=== PATIENT | male | born 1965 | race Caucasian/White ===

== ENCOUNTER 2021-08-10 08:08 | Emergency (ER) | payer MEDICAID, SELFPAY ==
--- NOTE | ~2021-08-10 | XR_ITS ---
EXAMINATION: XR KNEE, LEFT CLINICAL INFORMATION: Left knee swelling. COMPARISON: None TECHNIQUE: Four views of the left knee. FINDINGS: The patient is status post proximal tibial ORIF with medial and lateral fixation plates and multiple securing screws in place without abnormality. Old healed proximal fibular metaphysis fracture. Mild hypermetabolic degenerative joint changes are seen more pronounced in the femoral tibial joint spaces. There is a small suprapatellar joint effusion. Mild to moderate soft tissue swelling is seen most pronounced in the proximal pretibial region. There is a questionable soft tissue collection with thin wall anterolateral to the tibial metaphysis measuring approximately 4.3 x 3.5 x 1.6 cm. XR/XR knee LT 4V IMPRESSION: Mild to moderate soft tissue swelling, most pronounced in the pretibial region. There is a possible soft tissue collection anterolateral to the tibial metaphysis measuring up to 4.3 cm. Correlate with physical exam. Initial imaging with targeted soft tissue ultrasound is recommended. No overt acute underlying osseous/hardware abnormality.
--- NOTE | ~2021-08-10 | US_ITS ---
EXAMINATION: US VENOUS ULTRASOUND WITH DOPPLER LOWER EXTREMITY, LEFT CLINICAL INFORMATION: Left calf pain and swelling. COMPARISON: None TECHNIQUE: Ultrasound of the deep veins is performed from the hip to the calf with compression sonography and color and pulse Doppler assessment. Spectral analysis with color-flow imaging is performed. FINDINGS: There is normal venous compression and respiratory variation and augmented flow. The visualized common femoral vein, superficial femoral vein, profunda femoral vein, popliteal vein, and the trifurcation region shows no evidence of deep venous thrombosis. There is no significant popliteal fossa cyst. Left inguinal reniform lymph node with thin cortex measures 3.0 cm in long axis. A heterogeneous collection is seen proximally in the left dawson with heterogeneous anechoic and hypoechoic components measuring approximately 3.0 x 1.4 x 2.4 cm. If the patient's symptoms persist, followup ultrasound in 5 days 7 days might be of value to exclude proximal propagation from a non-visualized calf vein. US/US venous duplex LE IMPRESSION: 1. No evidence for deep venous thrombosis in the visualized veins of the left lower extremity. 2. Heterogeneous collection/mass in the left dawson measuring up to 3.0 cm is nonspecific, but suggests a hematoma. Correlate with physical exam and patient history. A soft tissue mass cannot be completely excluded. * If these findings persist or enlarge, short-term repeat targeted soft tissue ultrasound can be performed as clinically indicated to assess for change.
[2021-08-10 08:20] VITALS: BP 129/66; PULSE 107; RESP 18; TEMP 36.9; O2SAT 96; BMI 30.7
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
[2021-08-10 09:11] LABS: MANUAL DIFF FLAG NO
[2021-08-10 09:13] LABS: Basophils Absolute Auto 0.1 X10*3/uL (0.0-0.2); Basophils Percent Auto 0.6 % (0-2); Eosinophils Absolute Auto 0.2 X10*3/uL (0.0-0.4); Eosinophils Percent Auto 1.7 % (0-4); Hematocrit 36.5 % (42.0-52.0); Hemoglobin 12.1 g/dl (14.0-18.0); Imm Gran Abs Auto 0.03 X10*3/uL (0.00-0.03); Imm Gran Pct Auto 0.3 % (0.0-0.4); Lymphocytes Percent Auto 11.9 % (20-40); Mean Corpuscular HGB Conc 33.2 g/dl (31.0-36.0); Mean Corpuscular Volume 87.5 fL (80.0-98.0); Mean Platelet Volume 9.1 fL (9.4-12.4); Monocytes Absolute Auto 0.9 X10*3/uL (0.1-1.2); Monocytes Percent Auto 10.4 % (2-11); Neutrophils Absolute Auto 6.6 x10*3/uL (2.0-8.3); Neutrophils Percent Auto 75.1 % (45-73); Platelet Count 251 X10*3/uL (160-400); Red Blood Count 4.17 X10*6/uL (4.60-5.80); Red Cell Distribution Width 13.5 % (11.0-16.0); White Blood Count 8.8 X10*3/uL (4.8-10.8)
[2021-08-10 09:31] LABS: Alanine Aminotransferase 18 U/L (0-40); Albumin Level 3.8 g/dL (3.5-5.0); Alkaline Phosphatase 85 U/L (39-117); Anion Gap 13 (12-20); Aspartate Amino Transferase 11 U/L (5-37); Blood Urea Nitrogen 13 mg/dL (9-16); C Reactive Protein 22.84 mg/dL (< or = 0.50); Calcium 9.4 mg/dL (8.4-10.2); Carbon Dioxide 26 mmol/L (22-29); Chloride 104 mmol/L (96-108); Estimated Glomerular Filt Rate > 60; Glucose Random 146 mg/dL (60-115); Potassium 3.7 mmol/L (3.3-5.1); Sodium 139 mmol/L (135-145); Total Protein 7.1 g/dL (6.5-8.0)
[2021-08-10 09:47] LABS: Erythrocyte Sedimentation Rate 41 MM/HR (0-15)
== END 2021-08-10 10:26 | disposition home or self-care (01) ==
PROVIDERS: Physician Assistant Medical; Emergency Provider Emergency Medicine
DX: R60.0 Localized edema (principal); M25.562 Pain in left knee; Z79.899 Other long term (current) drug therapy
CPT/HCPCS: 36415; 73564; 80053; 85025; 85652; 86140; 93971; 99282; 99284